=== PATIENT | male | born 1950 | race Caucasian/White ===

== ENCOUNTER 2019-04-20 21:32 | Inpatient (IN) | payer MEDICARE, OTHER ==
[~2019-04-20] VITALS: Ht 172.7 cm; Wt 87.1 kg
--- NOTE | ~2019-04-20 | CON ---
[address] [address] CONSULTATION Name: KIKO OLMOS Room: [address] IN ..#: [id number] Admission: 04/21/19 Attend Phys: Gregorio Raygoza, Discharge: Date of : 52 Report #: [id number] THIS REPORT FOR: //name// CC: Gregg Raygoza DATE OF SERVICE: 04/22/2019 NEPHROLOGY CONSULTATION: CONSULTING PHYSICIAN: Dr. Galarza. REASON FOR NEPHROLOGY CONSULTATION: Acute kidney injury on top of chronic kidney disease stage 4. REASON FOR ADMISSION: Abdominal pain and nausea and vomiting. HISTORY OF PRESENT ILLNESS: This is a 69-year-old male with past medical history of chronic kidney disease stage 4 with baseline creatinine around 2.3, history of left nephrectomy in 11/2017 because of bleeding and history of partial right nephrectomy and this was in 2009 because of renal cell carcinoma and other history including coronary artery bypass 1 vessel bypass in 2016 with a mitral valve replacement, mechanical valve replacement and other medical histories came in because of abdominal pain and nausea and vomiting. His creatinine was found to be 2.6 and he was given IV fluids with which his creatinine has come down to 2.3. His symptoms have also improved this morning. There was initial suspicion of acute cholecystitis, but only gallbladder stones were found on imaging and there was no evidence of cholecystitis and since then the symptoms have improved. There is no surgery planned. He does not take any NSAIDs at home. No history of any kidney stones. ALLERGIES: No known allergies. REVIEW OF SYSTEMS: As mentioned in history of present illness, otherwise negative. PAST MEDICAL HISTORY: Which include as mentioned in history of present illness. Otherwise, shoulder surgery, knee surgery, nose surgery, cataract extraction, removal of tumor from the right kidney and chronic kidney disease stage 4, hypertension, hyperlipidemia. PAST SURGICAL HISTORY: As above. MEDICATIONS: Include aspirin, escitalopram, Lipitor, warfarin, oxycodone, amlodipine, [place] [address] CONSULTATION Name: KIKO OLMOS Room: [address] IN [facility].#: [id number] Admission: 04/21/19 Attend Phys: Gregorio Raygoza, Discharge: Date of : 52 Report #: [id number] FAMILY HISTORY: Positive for heart disease. SOCIAL HISTORY: He is , lives with his . Does not smoke or take alcohol or use illicit drugs. PHYSICAL EXAMINATION: VITAL SIGNS: Blood pressure is 129/70, pulse rate is 81, temperature is 36.9, respiratory rate is 16 and pulse ox is 98%. He is on room air. GENERAL: He is awake and alert and oriented x 3. HEAD AND EYES: Mucous membranes are moist. NECK: There is no JVD. CHEST: Bilaterally clear to auscultation. Anteriorly, no crackles or wheezing. CARDIOVASCULAR: S1, S2 normal. No murmurs. ABDOMEN: Soft, nontender, nondistended, bowel sounds present. EXTREMITIES: There is no lower extremity edema, symmetrical lower extremities. NEUROLOGICAL: Gross neurological function is intact. PSYCHIATRIC: Mood and affect seem to be normal. LABORATORY DATA: Hemoglobin 11.6. WBC is 12. INR was 3.9, creatinine was 2.3, down from 2.6. Other labs are reviewed. IMAGING: Abdominal ultrasound, chest x-ray and abdominal pelvic CT were reviewed. ASSESSMENT: 1. Acute kidney injury, chronic kidney disease stage 4 in the setting of volume depletion, creatinine was 2.6 at baseline and UA showed 2+ protein, 0-2 rbc's per high power field and creatinine is 2.3 at baseline. 2. History of left nephrectomy because of bleeding. This was in November of last year and history of right partial nephrectomy. This was in 2009. 3. The patient follows with Urology. He does have a right complex cyst that he knows of, imaging at our facility here also showed a right complex cyst. 4. Abdominal pain, nausea, vomiting, gallbladder stones, symptoms have improved. 5. Supratherapeutic INR, primary is managing. 6. History of coronary artery disease and coronary artery bypass. 7. He is on anticoagulation for history of Factor 5 Leiden as well as for a mechanical mitral valve. PLAN: 1. Creatinine has come back to baseline 2.3. 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 2. The patient can follow with his urologist for the complex cyst in the right kidney, which he is already doing. Thank you for this consultation. I do [place] [address] CONSULTATION Name: KIKO OLMOS Room: [address] IN [facility].#: [id number] Admission: 04/21/19 Attend Phys: Gregorio Raygoza, Discharge: Date of : 52 Report #: [id number] will be signing off. It is okay to be discharged from renal standpoint today. Discussed with the family, the patient, and the patient's nurse. By: [id number] Mauro MD /nika
[~2019-04-20 21:32] MED LIST: ASPIR 8181 MG PO; COREG25 MG PO; COUMADIN 4 MG TA4 M1 PO; FLOMAX0.4 MG PO; LIPITOR 20 MG T20 M1 PO; MAXZIDE-25 MG1 EACH PO
[2019-04-20 21:35] VITALS: BP 160/68
[2019-04-20] MEDS ORDERED: VITAMIN D1000 UNI1 PO (21:53)
[2019-04-20] MEDS ORDERED: COUMADIN 5 MG TA5 M1 PO (21:53)
[2019-04-20] MEDS ORDERED: LEXAPRO 10 MG T10 M1 PO (21:54)
[2019-04-20] MEDS ORDERED: COUMADIN 2 MG TA2 M1 PO (21:54)
[2019-04-20] MEDS ORDERED: OXYCODONE HCL 55 MG PO (21:55)
[2019-04-20] MEDS ORDERED: MAGOX 400400 MG PO (21:56)
[2019-04-20] MEDS ORDERED: NITROGLYCERIN0.4 MG SUBLING (21:56)
[2019-04-20] MEDS ORDERED: STOOL SOFTENER1 EAC2 PO (21:57)
[2019-04-20] MEDS ORDERED: NORVASC5 MG PO (21:58)
[2019-04-20 22:03] LABS: ABSOLUTE EOSINOPHILS 0.1 thou/uL (0.0-0.7); ABSOLUTE LYMPHOCYTES 1.2 thou/uL (0.8-5.3); ABSOLUTE MONOCYTES 0.8 thou/uL (0.0-1.2); ABSOLUTE NEUTROPHILS 11.2 thou/uL (1.6-8.1); BASOPHILS 0.3 %; HEMATOCRIT 38.6 % (42.0-52.0); HEMOGLOBIN 12.7 gm/dL (14.0-18.0); LYMPHOCYTES 9.3 %; MCV 93.8 fL (80.0-100.0); MONOCYTES 6.3 %; MPV 9.8 fl. (7.2-11.1); NUCLEATED RBCS 0 /100WBC; PLATELET COUNT* 193 thou/uL (150-400); POLYS 83.1 %; RBC 4.11 mil/uL (4.50-6.00); RDW-CV 16.2 % (10.5-14.5); WBC 13.4 thou/uL (4.0-11.0)
[2019-04-20 22:14] LABS: ANION GAP 8 mmol/L (7-16); BUN 51 mg/dL (7-18); CALCIUM 8.7 mg/dL (8.5-10.1); CHLORIDE 107 mmol/L (98-107); CO2 27 mmol/L (21-32); CREATININE 2.6 mg/dL (0.6-1.3); GLUCOSE 121 mg/dL (70-99); POTASSIUM 4.4 mmol/L (3.5-5.1); SODIUM 142 mmol/L (136-145)
[2019-04-20 22:15] LABS: PROTIME 30.1 Seconds (9.20-11.50)
[2019-04-20 22:25] LABS: ALBUMIN 3.4 g/dL (3.4-5.0); ALKALINE PHOSPHATASE 57 U/L (46-116); LIPASE 155 U/L (73-393); NT-PRO BRAIN NAT PEPTIDE 4260 pg/mL (<300); SGOT 47 U/L (15-37); SGPT 41 U/L (30-65); TOTAL BILIRUBIN 1.4 mg/dL (<0.1-1.0); TROPONIN-I LEVEL <0.06 ng/mL (<0.06)
[2019-04-21 05:05] VITALS: BP 115/58
--- NOTE | 2019-04-21 10:24 | EKG ---
[place] [address] ELECTROCARDIOGRAM REPORT Name: KIKO OLMOS Room: [address] [address] 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 : 1950 Requested By: Fernanda Galarza Order Number: [id number] MD: Manish Honeycutt Measurements Intervals [place] Rate: 74 P: -19 WA: 151 QRS: -20 QRSD: 106 T: 82 QT: 419 QTc: 465 Interpretive Statements Sinus rhythm Borderline left axis deviation septal infarct, old Nonspecific repol abnormality, lateral leads Compared to ECG 08/19/2016 12:28:57 Myocardial infarct finding still present Electronically Signed On 04-21-2019 10:24:23 CDT by Manish Honeycutt [email or web address] <ELECTRONICALLY SIGNED> By: Manish Honeycutt MD, FACC 04/21/19 1024 [id number] Manish Honeycutt MD, [facility] /EPI
--- NOTE | 2019-04-21 14:00 | NUR ---
er admit to 201 telephone report given prior to arrival patient to via cart oriented to rm and call light denies pain at this time
[2019-04-21 15:23] LABS: CALCIUM 8.6 mg/dL (8.5-10.1); CREATININE 2.3 mg/dL (0.6-1.3); POTASSIUM 4.3 mmol/L (3.5-5.1)
[2019-04-21 16:00] VITALS: BP 118/72
--- NOTE | 2019-04-21 17:30 | NUR ---
pvr done 248 cc after 200 cc voide dark yellow urine
[2019-04-21 18:57] LABS: URINE BLOOD 1+ (Negative); URINE CLARITY CLEAR; URINE COLOR YELLOW; URINE GLUCOSE-RANDOM NEGATIVE (Negative); URINE KETONES NEGATIVE (Negative); URINE LEUKOCYTES-REFLEX NEGATIVE (Negative); URINE NITRITE-REFLEX NEGATIVE (Negative); URINE PROTEIN 2+ (Negative); URINE SPECIFIC GRAVITY 1.025 (1.005-1.030); URINE UROBILINOGEN 0.2 E.U./dl (0.2-1.0)
[2019-04-21 19:02] LABS: ICTOTEST (BILI CONFIRMATORY) Positive (Negative); URINE BILIRUBIN 2+ (Negative)
[2019-04-21 19:04] LABS: HYALINE CASTS 0-3 Few /LPF (None Seen); MUCUS None Seen strn/LPF (None Seen); SQUAMOUS 0-3 Few /LPF (0-3)
[2019-04-21 19:05] LABS: CRYSTALS None Seen /LPF (None Seen); URINE RBC 0-2 Rare /HPF (0-2)
[2019-04-21 19:06] LABS: BACTERIA-REFLEX None Seen /HPF (None Seen); URINE WBC-REFLEX None Seen /HPF (0-5)
[2019-04-21 20:00] VITALS: BP 133/70
[2019-04-22] VITALS: BP 130/68
[2019-04-22 03:50] VITALS: BP 129/68
--- NOTE | 2019-04-22 04:42 | NUR ---
ASSUMED PT CARE AT APPROX 1930. PT IS AWAKE AND ORIENTED X4. VSS ON ROOM AIR. SR ON TELE. PT COMPLAINED OF RUQ ABDOMINAL PAIN RELIEVED BY MORPHINE IV GIVEN PER JAN. PT IS ABLE TO SLEEP MOST OF THE NIGHT. CALL LIGHT WITHIN REACH. HOURLY RUNDING DONE FOR PT SAFETY.
[2019-04-22 05:05] LABS: INR 3.9; PROTIME 39.1 Seconds (9.20-11.50)
[2019-04-22 07:20] VITALS: BP 129/70
[2019-04-22 09:07] LABS: HEMATOCRIT 33.3 % (42.0-52.0); HEMOGLOBIN 11.3 gm/dL (14.0-18.0); MCH 31.9 pg (26.0-34.0); MCHC 33.8 g/dL (28.0-37.0); MCV 94.3 fL (80.0-100.0); MPV 10.1 fl. (7.2-11.1); NUCLEATED RBCS 0 /100WBC; PLATELET COUNT* 137 thou/uL (150-400); RBC 3.53 mil/uL (4.50-6.00); RDW-CV 16.6 % (10.5-14.5)
[2019-04-22 09:30] LABS: ALBUMIN 2.5 g/dL (3.4-5.0); CREATININE 2.1 mg/dL (0.6-1.3)
[2019-04-22 09:32] LABS: ABSOLUTE LYMPHOCYTES 1.2 thou/uL (0.8-5.3); ABSOLUTE MONOCYTES 0.2 thou/uL (0.0-1.2); ABSOLUTE NEUTROPHILS 10.6 thou/uL (1.6-8.1); ATYPICAL LYMPHS 4 %; PLATELET ESTIMATE ADEQUATE
--- NOTE | 2019-04-22 11:05 | NUR ---
Pt is A&O. Resides at home with his . Independent. No DME. Hx of [facility] and [facility]. Hx of inpt rehab at [facility]. No hx of SNF. Hx of cardiac rehab. Goal is home at dc, no needs anticipated.
[2019-04-22 11:39] VITALS: BP 107/63
--- NOTE | 2019-04-22 14:01 | CON ---
[address] [address] CONSULTATION Name: KIKO OLMOS Room: [address] IN [facility].#: [id number] Admission: 04/21/19 Attend Phys: Gregorio Raygoza, Discharge: Date of : 52 Report #: [id number] THIS REPORT FOR: //name// CC: Gregg Raygoza DATE OF SERVICE: 04/21/2019 HISTORY OF PRESENT ILLNESS: The patient is a 69-year-old white male who I was asked to see in the Emergency Room today because of his history of coronary artery disease. The patient has extensive past medical history. Unfortunately, none of the old records available. He has a long history of hypertension and hyperlipidemia. He has had multiple heart catheterizations in the past because of chest pain, but was never found to have coronary artery disease previously. He has a long history of heart murmur and was previously followed by Dr. Camacho at [facility] for mitral regurgitation. Apparently, his mitral regurgitation worsened and the patient eventually underwent mitral valve replacement using a mechanical mitral valve and a single vessel coronary artery bypass surgery at [facility] in 07/2016. He had a previous history of bilateral PEs and has been on warfarin for about 12 years because of a history of factor V Leiden. He then notes that last year, he was at [facility] for almost 2 months. He apparently had left flank pain and there was some type of hemorrhage of his kidney. He eventually had to have a kidney removed and required a transfusion. Apparently, postoperatively, he had atrial fibrillation, was on sotalol for a period of time, which was discontinued because of low blood pressure. He has been on midodrine in the past. Recently, however, the patient was doing well, although he does not exercise on a regular basis. Recently, he has had intermittent right upper quadrant pain. Last night, after dinner, he had pain in his right upper quadrant, became nauseated, vomited 4 times. He came to the Emergency Room and was felt to have cholecystitis. Cardiology consultation was requested. He denied recent chest pain, increased shortness of breath. He does note occasional irregular heartbeat, but he has had no syncope or edema. PAST MEDICAL HISTORY: Otherwise, he has had shoulder surgery, knee surgery, nose surgery, cataract extraction, removal of a tumor from the right kidney. MEDICATIONS: Consist of aspirin, escitalopram, Lipitor, warfarin, oxycodone, amlodipine, carvedilol. ALLERGIES: He has no known drug allergies. FAMILY HISTORY: Positive for heart disease. SOCIAL HISTORY: He is . He and his [place], 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 He quit smoking a year ago. No alcohol abuse. REVIEW OF SYSTEMS: He has had no history of stroke, asthma, peptic ulcer disease, liver disease, psychiatric illness or chronic skin condition. PHYSICAL EXAMINATION: GENERAL: an elderly male, lying in bed, appeared in no acute distress. VITAL SIGNS: He had a blood pressure of 130/70, pulse 70, he was afebrile. HEENT: He was anicteric. Conjunctivae pink. Mucous members appeared moist. NECK: Veins did not appear distended. No carotid bruits. CHEST: Revealed crackles in the bases. CARDIAC: Regular rate and rhythm, metallic mitral opening and closing sound. No significant murmurs. ABDOMEN: Soft. EXTREMITIES: Had no edema. Dorsalis pedis pulse 1+ bilaterally. SKIN: Cool and dry. NEUROLOGIC: Nonfocal. LABORATORY DATA: His ECG showed a sinus rhythm, nonspecific ST-segment changes. His workup in the Emergency Room last night, he had a CT scan of the abdomen and pelvis with contrast that showed evidence of previous left nephrectomy, partial right renal resection. There are multiple gallstones, no biliary obstruction, coronary artery calcifications noted. His chest x-ray last night showed cardiomegaly, evidence of previous sternotomy. He had a liver ultrasound today that showed a cyst of the right kidney. His lab work, sodium 142, BUN 51, creatinine 2.6, glucose 121. Troponin 0.06. BNP 4260. INR is 3.0. White blood cell count 13.4, hemoglobin 12.6. IMPRESSION AND RECOMMENDATIONS: 1. Status post mitral valve replacement. I will attempt to obtain old records. I would continue chronic anticoagulation. 2. History of atrial fibrillation. The patient is no longer on sotalol. 3. Coronary artery disease, previous bypass surgery. No recent angina. 4. Previous removal of renal cell carcinoma. 5. History of factor V Leiden. The patient has had previous pulmonary embolus. 6. History of hypertension. The patient has been on calcium maciej and beta maciej. 7. Hyperlipidemia. The patient is on a statin drug. 8. History of hypotension. The patient has [place] [address] CONSULTATION Name: KIKO OLMOS Room: [address] IN [facility].#: [id number] Admission: 04/21/19 Attend Phys: Gregorio Raygoza, Discharge: Date of : 52 Report #: [id number] 9. Acute cholecystitis. I would recommend no procedure until his INR is less than 1.6. <ELECTRONICALLY SIGNED> By: Manish Honeycutt MD, FACC 04/22/19 1401 1125 [id number] m Honeycutt MD, FACRicco /nt
[2019-04-22 15:30] VITALS: BP 120/69
--- NOTE | 2019-04-22 17:11 | NUR ---
WOUND NURSE: PATIENT SEEN TO ADDRESS HEALING SKIN TEAR ON THE LEFT FOREARM. EDGES ARE WELL APPROXIMATED AND THERE IS NO ACTIVE DRAINAGE. MEASURES 2.0 X 0.2 X 0.1 CM. CLEANSED WITH WOUND CLEANSER AND GAUZE, THEN APPLIED MARATHON LIQUID SKIN PROTECTANT. THIS WAS TOLERATED WELL BY THE PATIENT. DO NOT ANTICIPATE FURTHER FOLLOW UP WILL BE NECESSARY. PATIENT INSTRUCTED ON PREVENTATIVE MEASURES TO PREVENT FURTHER SKIN TRAUMA IN THE FUTURE.
[2019-04-22 20:00] VITALS: BP 149/80
[2019-04-23 01:13] VITALS: BP 145/61
[2019-04-23 04:04] VITALS: BP 140/69
--- NOTE | 2019-04-23 05:10 | NUR ---
ASSUMED PATIENT CARE AT 1900. PATIENT ALERT AND ORIENTED TIMES FOUR. MINOR COMPLAINTS OF PAIN NOTED, CONTROLLED WITH IV PAIN MEDICATION. PAPERHANGER APPRENTICE AND HOURLY ROUNDING COMPLETED CHARTED
[2019-04-23 05:11] LABS: INR 2.8; PROTIME 28.1 Seconds (9.20-11.50)
[2019-04-23 07:30] VITALS: BP 139/79
[2019-04-23 10:46] VITALS: BP 139/79
[2019-04-23] MEDS ORDERED: FLAGYL500 M1 PO (11:08)
[2019-04-23] MEDS ORDERED: KEFLEX250 MG PO (11:10)
== END 2019-04-23 11:25 | disposition home or self-care (01) | DRG 444 ==
LOC: M.ERS 21:32 → M.2W 04-21 00:22 → M.TBA-ER 04-21 00:22 → M.2W 04-21 14:12
PROVIDERS: Internal Medicine; Internal Medicine Cardiovascular Disease; Personal Emergency Response Attendant; Surgery; ADMIT Family Medicine
DX: K80.00 Calculus of gallbladder with acute cholecystitis without obstruction (principal); N17.0 Acute kidney failure with tubular necrosis; R65.10 Systemic inflammatory response syndrome (SIRS) of non-infectious origin without acute organ dysfunction; N18.4 Chronic kidney disease, stage 4 (severe); I13.0 Hypertensive heart and chronic kidney disease with heart failure and stage 1 through stage 4 chronic kidney disease, or unspecified chronic kidney disease; N40.0 Benign prostatic hyperplasia without lower urinary tract symptoms; I25.10 Atherosclerotic heart disease of native coronary artery without angina pectoris; E78.5 Hyperlipidemia, unspecified; I34.0 Nonrheumatic mitral (valve) insufficiency; I48.91 Unspecified atrial fibrillation; E86.9 Volume depletion, unspecified; Z79.01 Long term (current) use of anticoagulants; Z95.2 Presence of prosthetic heart valve; Z79.82 Long term (current) use of aspirin; Z79.899 Other long term (current) drug therapy; Z95.1 Presence of aortocoronary bypass graft; Z98.49 Cataract extraction status, unspecified eye; Z82.49 Family history of ischemic heart disease and other diseases of the circulatory system; Z87.891 Personal history of nicotine dependence; Z90.5 Acquired absence of kidney; Z86.711 Personal history of pulmonary embolism